=== PATIENT | male | born 1945 | race Caucasian/White ===

== ENCOUNTER → 2017-07-27 | Outpatient (CLI) | payer MEDICARE, OTHER | END | disposition home or self-care (01) | LOC: LAB.O 09:41 | PROVIDERS: ATTEND Internal Medicine | DX: R53.83 Other fatigue (principal); E07.9 Disorder of thyroid, unspecified; E78.5 Hyperlipidemia, unspecified; Z12.5 Encounter for screening for malignant neoplasm of prostate | CPT/HCPCS: 36415; 80061; 82627; 82670; 84270; 84402; 84403; 84443; 84481; 85025; G0103 ==

== ENCOUNTER → 2017-08-02 | Outpatient (CLI) | payer MEDICARE, OTHER | END | disposition home or self-care (01) | LOC: LAB.O 14:39 | PROVIDERS: ATTEND Internal Medicine | DX: E29.1 Testicular hypofunction (principal); R53.83 Other fatigue; R97.20 Elevated prostate specific antigen [PSA] ==

== ENCOUNTER 2018-06-10 05:33 | Day surgery (SDC) | payer MEDICARE, OTHER ==
[2018-06-10] MEDS ORDERED: TROP 1%/CYCLOPEN 1%/PHENYL 2% DROPS ONE (08:49)
[2018-06-10] MEDS ORDERED: PROPARACAINE 0.5% OPHTH SOL 15 ML BTTL ONE (08:49)
[2018-06-10] MEDS ORDERED: MIDAZOLAM INJ 2 MG/2 ML VIAL ONE (09:31)
[2018-06-10] MEDS ORDERED: PROPARACAINE 0.5% OPHTH SOL 15 ML BTTL RIGHT_EYE ONE (09:33)
[2018-06-10] MEDS ORDERED: DEXAMETHASONE 0.1% OPHTH SOL 1 DROP RIGHT_EYE ONE ×3 (09:43→09:59)
[2018-06-10] MEDS ORDERED: LIDOCAINE 1% PF 2 ML AMP INJ ONE ×2 (09:43→09:50)
[2018-06-10] MEDS ORDERED: TOBRAMYCIN SULF 0.3 % OPHT SOL 1 DROP RIGHT_EYE ONE ×3 (09:44→09:59)
[2018-06-10] MEDS ORDERED: BRIMONIDINE 0.2% OPHTH DROPS RIGHT_EYE ONE ×3 (09:44→09:59)
== END 2018-06-10 10:43 | disposition home or self-care (01) ==
LOC: AMB 05:33
PROVIDERS: ATTEND Ophthalmology
DX: H25.11 Age-related nuclear cataract, right eye (principal); H52.209 Unspecified astigmatism, unspecified eye; I10 Essential (primary) hypertension; M06.9 Rheumatoid arthritis, unspecified; E66.9 Obesity, unspecified; Z88.5 Allergy status to narcotic agent; Z88.8 Allergy status to other drugs, medicaments and biological substances; Z79.899 Other long term (current) drug therapy
CPT/HCPCS: 00142; 66984; J2250

== ENCOUNTER 2018-06-24 05:32 | Day surgery (SDC) | payer MEDICARE, OTHER ==
[2018-06-24] MEDS ORDERED: PROPARACAINE 0.5% OPHTH SOL 15 ML BTTL ONE (05:53)
[2018-06-24] MEDS ORDERED: TROP 1%/CYCLOPEN 1%/PHENYL 2% DROPS ONE ×2 (05:53→06:04)
[2018-06-24] MEDS ORDERED: PROPARACAINE 0.5% OPHTH SOL 15 ML BTTL LEFT_EYE ONE (08:50)
[2018-06-24] MEDS ORDERED: MIDAZOLAM INJ 2 MG/2 ML VIAL ONE (08:56)
[2018-06-24] MEDS ORDERED: LIDOCAINE 1% PF 2 ML AMP INJ ONE (09:01)
[2018-06-24] MEDS ORDERED: TOBRAMYCIN SULF 0.3 % OPHT SOL 1 DROP LEFT_EYE ONE ×3 (09:01→09:17)
[2018-06-24] MEDS ORDERED: DEXAMETHASONE 0.1% OPHTH SOL 1 DROP LEFT_EYE ONE ×3 (09:01→09:17)
[2018-06-24] MEDS ORDERED: BRIMONIDINE 0.2% OPHTH DROPS LEFT_EYE ONE ×3 (09:02→09:17)
== END 2018-06-24 09:57 | disposition home or self-care (01) ==
LOC: AMB 05:32
PROVIDERS: ATTEND Ophthalmology
DX: H25.12 Age-related nuclear cataract, left eye (principal); M06.9 Rheumatoid arthritis, unspecified; I10 Essential (primary) hypertension; Z88.5 Allergy status to narcotic agent; Z88.8 Allergy status to other drugs, medicaments and biological substances; Z79.899 Other long term (current) drug therapy
CPT/HCPCS: 00142; 66984; J2250

== ENCOUNTER → 2018-07-16 | Outpatient (CLI) | payer MEDICARE, OTHER | LOC: LAB.O 09:08 | PROVIDERS: ATTEND Internal Medicine | DX: E29.1 Testicular hypofunction (principal); R53.83 Other fatigue; E07.9 Disorder of thyroid, unspecified; Z79.899 Other long term (current) drug therapy ==

== ENCOUNTER → 2018-08-02 | Outpatient (CLI) | payer MEDICARE, OTHER | LOC: LAB.O 09:43 | PROVIDERS: ATTEND Internal Medicine | DX: Z12.5 Encounter for screening for malignant neoplasm of prostate (principal); Z13.9 Encounter for screening, unspecified; Z79.899 Other long term (current) drug therapy | CPT/HCPCS: 36415; 80061; G0103 ==

== ENCOUNTER → 2019-01-02 | Outpatient (CLI) | payer MEDICARE, OTHER | LOC: LAB.O 13:32 | PROVIDERS: ATTEND Internal Medicine | DX: R53.83 Other fatigue (principal); R97.20 Elevated prostate specific antigen [PSA]; E29.1 Testicular hypofunction; Z79.899 Other long term (current) drug therapy ==

== ENCOUNTER → 2019-07-08 | Outpatient (CLI) | payer MEDICARE, OTHER | LOC: GMAE 11:42 | PROVIDERS: ATTEND Family Medicine | DX: E03.9 Hypothyroidism, unspecified (principal); I10 Essential (primary) hypertension; E78.2 Mixed hyperlipidemia; Z12.5 Encounter for screening for malignant neoplasm of prostate | CPT/HCPCS: 84443; G0103 ==

== ENCOUNTER → 2019-08-20 | Outpatient (CLI) | payer MEDICARE, OTHER | LOC: LAB.O 09:10 | PROVIDERS: ATTEND Internal Medicine | DX: Z00.00 Encounter for general adult medical examination without abnormal findings (principal); R68.82 Decreased libido; R53.83 Other fatigue; R97.20 Elevated prostate specific antigen [PSA]; E55.9 Vitamin D deficiency, unspecified; Z13.21 Encounter for screening for nutritional disorder; Z79.899 Other long term (current) drug therapy; Z13.1 Encounter for screening for diabetes mellitus ==

== ENCOUNTER → 2020-03-01 | Outpatient (CLI) | payer MEDICARE, OTHER ==
--- NOTE | 2020-03-01 08:30 | RAD ---
EXAM DESCRIPTION: Knee,Left Complete CLINICAL HISTORY: 75 years Male, PAIN IN LEFT KNEE COMPARISON: None. Findings: Four views/radiographs Location: Left knee No acute fracture or dislocation. Moderate medial compartment narrowing. Small tibial osteophytes. No significant joint effusion. Shallow femoral trochlea. IMPRESSION: Osteoarthritis of the left knee. Electronically signed by: Laurent Ca MD 03/01/2020 8:29 AM CDT
--- NOTE | 2020-03-01 08:34 | RAD ---
EXAM DESCRIPTION: Pelvis CLINICAL HISTORY: 75 years Male, PAIN IN RIGHT HIP COMPARISON: 05/31/2014. TECHNIQUE: Single view radiograph of the pelvis. IMPRESSION: Partially obscured sacrum and coccyx by overlying bowel. No acute displaced fracture. No dislocation. 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 Electronically signed by: Hadley Day MD 03/01/2020 8:32 AM CDT
--- NOTE | 2020-03-01 08:36 | RAD ---
EXAM DESCRIPTION: Knee,Right Complete CLINICAL HISTORY: 75 years Male, PAIN IN RIGHT KNEE TECHNIQUE: 4 views of the right knee were performed. COMPARISON: None available. FINDINGS: The visualized bones appear well mineralized. No acute fracture or dislocation. Mild medial and patellofemoral joint space narrowing. Small suprapatellar effusion. The soft tissues appear grossly unremarkable. IMPRESSION: Mild medial and patellofemoral joint space narrowing. Small suprapatellar effusion. Electronically signed by: Yohana Ortiz MD 03/01/2020 8:35 AM CDT
== END ==
LOC: RAD 07:44
PROVIDERS: ATTEND Orthopaedic Surgery
DX: M16.0 Bilateral primary osteoarthritis of hip (principal); M22.2X2 Patellofemoral disorders, left knee; M25.461 Effusion, right knee; M17.12 Unilateral primary osteoarthritis, left knee